=== PATIENT | male | born 1945 | race Caucasian/White ===

== ENCOUNTER → 2016-10-20 | Outpatient (REF) | payer MEDICARE ==
[~2016-10-20] MED LIST: /VERA12TA PO; DRIS50002 PO; DYAZCA OR; OMEP20CA3 PO; OMEP40CA2 PO; VITA1CAP2 PO; VITA200019 PO
[2016-10-20 11:48] LABS: INR 1.01; MEAN CORPUSCULAR HEMOGLOBIN 26.8 pg (27.0-33.0); MEAN CORPUSCULAR VOLUME 81.3 fl (80.0-96.0); WHITE BLOOD COUNT 8.9 K/mm3 (4.0-10.0)
[2016-10-20 12:17] LABS: ALBUMIN 3.6 GM/DL (3.2-5.2); ALBUMIN/GLOBULIN RATIO 1.03 (1.00-1.93); BILIRUBIN,TOTAL 0.9 MG/DL (0.2-1.0); CALCIUM LEVEL 8.3 MG/DL (8.8-10.2); CREATININE FOR GFR 1.55 MG/DL (0.70-1.30); POTASSIUM SERUM 3.4 MEQ/L (3.5-5.1); TOTAL PROTEIN 7.1 GM/DL (6.4-8.2)
== END ==
LOC: M SFHCPLAZ 08:57
PROVIDERS: ATTEND Family Medicine
DX: Z01.818 Encounter for other preprocedural examination (principal); R13.14 Dysphagia, pharyngoesophageal phase; E66.9 Obesity, unspecified; R41.3 Other amnesia; Z79.899 Other long term (current) drug therapy

== ENCOUNTER → 2017-01-27 | Outpatient (CLI) | payer MEDICARE ==
--- NOTE | 2017-01-28 09:29 | RADONC ---
RADIATION ONCOLOGY FOLLOWUP NOTE DATE: 01/27/2017 CHART NUMBER: [id number] DIAGNOSIS: Penis cancer STAGE: I, [id number]. ECOG performance status zero. FOLLOW UP NOTE: Mr. 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 The patient presents today reporting that he is doing quite well with no complaints at this time related to his radiation therapy or disease. He is having no urinary or bowel difficulties. No bone pain. He recently underwent a cholecystectomy. REVIEW OF SYSTEMS: The patient's review of systems is noncontributory. Denies nausea, vomiting, fevers, chills, night sweats, diplopia, headaches, anxiety or depression, anorexia, weight loss, visual disturbances, chest pain, urinary or bowel difficulties, bone pain, or neurological problems. PHYSICAL EXAMINATION: The patient is a well-developed, well-nourished male in no acute distress. HEENT exam is normocephalic, atraumatic. Extraocular movements are intact. There is no palpable cervical, supraclavicular, infraclavicular, axillary, or inguinal lymphadenopathy present. Lungs are clear to auscultation and percussion. Heart has a regular rate and rhythm. Abdomen is benign with no hepatosplenomegaly, masses, or tenderness. Rectal examination reveals a normal anal sphincter tone. Genital examination reveals some telangiectasia and edema of the penis as well as some fibrosis, but no evidence of nodularity, ulceration or recurrent disease. Skeletal examination reveals no tenderness to pressure or percussion of the bony skeleton. Extremities reveal no clubbing, cyanosis, or edema. Neurologic exam is grossly intact, as is the remainder of the physical examination. ASSESSMENT: The patient is clinically ABDIRASHID at this time and will be seen by us again in 1 year for further followup. He will also continue to be followed by his other physicians as well. cc: MD PRABHA Rowe
== END ==
LOC: M ONCR 13:11
PROVIDERS: ATTEND Radiology Radiation Oncology
DX: C60.9 Malignant neoplasm of penis, unspecified (principal)

== ENCOUNTER → 2017-08-11 | Outpatient (REF) | payer MEDICARE ==
[2017-08-11 15:34] LABS: BASO % 0.4 % (0.0-1.0); EOS # 0.3 10^3/uL (0.0-0.50); IMMATURE GRANULOCYTE % 0.4 % (0-0); LYMPH # 1.8 10^3/uL (1.5-4.5); LYMPH % 22.2 % (24.0-44.0); MEAN CORPUSCULAR HEMOGLOBIN 26.6 pg (27.0-33.0); MEAN CORPUSCULAR HGB CONC 32.1 g/dl (32.0-36.5); MEAN CORPUSCULAR VOLUME 82.9 fl (80.0-96.0); MONO # 0.7 10^3/uL (0.0-0.8); MONO % 8.5 % (0.0-5.0); NEUTROPHILS # 5.4 10^3/uL (1.8-7.7); NEUTROPHILS % 65.5 % (36.0-66.0); PLATELET COUNT, AUTOMATED 203 10^3/uL (150-450); RETIC HEMOGLOBIN EQUIVALENT 32.2 pg (24-36); RETICULOCYTE % 1.7 % (0.5-1.5); WHITE BLOOD COUNT 8.3 10^3/uL (4.0-10.0)
[2017-08-11 16:09] LABS: CALCIUM LEVEL 8.7 MG/DL (8.8-10.2); CREATININE FOR GFR 1.41 MG/DL (0.70-1.30); GLOMERULAR FILTRATION RATE 52.3 (>42); POTASSIUM SERUM 3.3 MEQ/L (3.5-5.1)
== END ==
LOC: M SFHCPLAZ 12:33
PROVIDERS: ATTEND Family Medicine
DX: I10 Essential (primary) hypertension (principal); R73.03 Prediabetes; E78.5 Hyperlipidemia, unspecified; D64.9 Anemia, unspecified; R60.0 Localized edema; Z23 Encounter for immunization

== ENCOUNTER → 2018-02-08 | Outpatient (REF) | payer MEDICARE ==
[2018-02-08 12:10] LABS: BASO % 0.3 % (0.0-1.0); EOS # 0.2 10^3/uL (0.0-0.50); EOS % 3.1 % (0.0-3.0); HEMATOCRIT 36.3 % (42.0-52.0); HEMOGLOBIN 11.4 g/dl (13.5-17.5); IMMATURE GRANULOCYTE % 0.6 % (0-3.0); LYMPH # 1.5 10^3/uL (1.5-4.5); LYMPH % 22.6 % (24.0-44.0); MEAN CORPUSCULAR HEMOGLOBIN 25.7 pg (27.0-33.0); MEAN CORPUSCULAR HGB CONC 31.4 g/dl (32.0-36.5); MEAN CORPUSCULAR VOLUME 81.9 fl (80.0-96.0); MONO # 0.7 10^3/uL (0.0-0.8); MONO % 10.4 % (0.0-5.0); NEUTROPHILS # 4.2 10^3/uL (1.8-7.7); PLATELET COUNT, AUTOMATED 170 10^3/uL (150-450); RED BLOOD COUNT 4.43 10^6/uL (4.30-6.10); RED CELL DISTRIBUTION WIDTH 16.7 % (11.5-14.5); RETICULOCYTE # 58.5 10^9/L (17-77); RETICULOCYTE % 1.3 % (0.5-1.5); WHITE BLOOD COUNT 6.7 10^3/uL (4.0-10.0)
[2018-02-08 13:01] LABS: FERRITIN 34 NG/ML (26-388); IRON (FE) 34 UG/DL (65-175); PERCENT SATURATION 11.5 % (19.7-50.0); TOTAL IRON BINDING CAPACITY 296 UG/DL (250-450)
[2018-02-08 18:46] LABS: ESTIMATED AVERAGE GLUCOSE 114 MG/DL (60-110); HEMOGLOBIN A1c 5.6 %
[2018-02-09 08:06] LABS: TRANSFERRIN 234 mg/dL (200-370)
== END ==
LOC: M SFHCPLAZ 10:27
DX: D64.9 Anemia, unspecified (principal); R73.03 Prediabetes
CPT/HCPCS: 83036

== ENCOUNTER → 2018-03-16 | Outpatient (CLI) | payer MEDICARE | LOC: M ONCR 13:09 | DX: C60.9 Malignant neoplasm of penis, unspecified (principal) | CPT/HCPCS: G0463 ==

== ENCOUNTER → 2018-05-31 | Outpatient (CLI) | payer MEDICARE ==
[~2018-05-31] MED LIST changes: -/VERA12TA PO; -DRIS50002 PO; -DYAZCA OR; +ISOVUE-370 76% 100ML VIAL (Q9967) As Ordered; -OMEP20CA3 PO; -OMEP40CA2 PO; -VITA1CAP2 PO; -VITA200019 PO
== END ==
LOC: M RAD 10:06
DX: I71.4 Abdominal aortic aneurysm, without rupture (principal); K57.30 Diverticulosis of large intestine without perforation or abscess without bleeding; Z95.828 Presence of other vascular implants and grafts
CPT/HCPCS: Q9967

== ENCOUNTER → 2018-10-24 | Outpatient (REF) | payer MEDICARE ==
[~2018-10-24] MED LIST changes: +/VERA12TA PO; +DRIS50003 PO; +DYAZCA OR; -ISOVUE-370 76% 100ML VIAL (Q9967) As Ordered; +OMEP20CA3 PO; +OMEP40CA2 PO; +VITA1CAP2 PO; +VITA200019 PO
[2018-10-24 13:37] LABS: URINE TOTAL PROTEIN 20.8 MG/DL (0-12)
[2018-10-24 14:05] LABS: PERCENT SATURATION 11.2 % (19.7-50.0); TOTAL PROTEIN 6.7 GM/DL (6.4-8.2)
[2018-10-24 14:36] LABS: HEMOGLOBIN A1c 5.6 %
== END ==
LOC: M SFHCPLAZ 11:12
PROVIDERS: ATTEND Family Medicine
DX: R35.1 Nocturia (principal); D50.9 Iron deficiency anemia, unspecified; R73.03 Prediabetes
CPT/HCPCS: 36415; 83036; 83550; 83880; 84165; 84166; 85046; G0103

== ENCOUNTER → 2019-01-23 | Outpatient (REF) | payer MEDICARE ==
[~2019-01-23] MED LIST changes: +VITA-183 PO; -VITA1CAP2 PO
[2019-01-23 13:17] LABS: BASO % 0.3 % (0.0-1.0); EOS # 0.2 10^3/uL (0.0-0.50); HEMATOCRIT 37.6 % (42.0-52.0); HEMOGLOBIN 12.1 g/dl (13.5-17.5); LYMPH # 1.6 10^3/uL (1.5-4.5); LYMPH % 20.6 % (24.0-44.0); MEAN CORPUSCULAR HEMOGLOBIN 27.6 pg (27.0-33.0); MEAN CORPUSCULAR HGB CONC 32.2 g/dl (32.0-36.5); MEAN CORPUSCULAR VOLUME 85.6 fl (80.0-96.0); MONO # 0.7 10^3/uL (0.0-0.8); MONO % 9.2 % (0.0-5.0); NEUTROPHILS # 5.3 10^3/uL (1.8-7.7); NEUTROPHILS % 67.5 % (36.0-66.0); PLATELET COUNT, AUTOMATED 190 10^3/uL (150-450); RED BLOOD COUNT 4.39 10^6/uL (4.30-6.10); WHITE BLOOD COUNT 7.8 10^3/uL (4.0-10.0)
[2019-01-23 13:20] LABS: APPEARANCE, URINE CLEAR (CLEAR); BACTERIA, URINE AUTO NEGATIVE (NEGATIVE); BILIRUBIN, URINE AUTO NEGATIVE (NEGATIVE); BLOOD, URINE BLOOD NEGATIVE (NEGATIVE); COLOR, URINE YELLOW (YELLOW); GLUCOSE, URINE (UA) AUTO NEGATIVE (NEGATIVE); KETONE, URINE AUTO NEGATIVE (NEGATIVE); LEUKOCYTE ESTERASE, URINE AUTO NEGATIVE (NEGATIVE); MUCUS, URINE SMALL (NEGATIVE); NITRITE, URINE AUTO NEGATIVE (NEGATIVE); PROTEIN, URINE AUTO NEGATIVE (NEGATIVE); RBC, URINE AUTO 1 /HPF (0-3); SPECIFIC GRAVITY URINE AUTO 1.023 (1.002-1.035); SQUAMOUS EPITHELIAL CELL UR AU 1 /HPF (0-6); WBC, URINE AUTO 2 /HPF (0-3)
== END ==
LOC: M SFHCPLAZ 10:23
PROVIDERS: ATTEND Family Medicine
DX: D50.9 Iron deficiency anemia, unspecified (principal)

== ENCOUNTER → 2019-08-28 | Outpatient (REF) | payer MEDICARE ==
[~2019-08-28] MED LIST changes: +OMEP-172 PO; -OMEP20CA3 PO
[2019-08-28 11:53] LABS: BASO % 0.3 % (0.0-1.0); EOS # 0.2 10^3/uL (0.0-0.5); EOS % 2.8 % (0.0-3.0); HEMATOCRIT 42.3 % (42.0-52.0); HEMOGLOBIN 12.8 g/dl (13.5-17.5); LYMPH # 1.4 10^3/uL (1.5-5.0); LYMPH % 20.9 % (24.0-44.0); MEAN CORPUSCULAR HEMOGLOBIN 26.4 pg (27.0-33.0); MEAN CORPUSCULAR HGB CONC 30.3 g/dl (32.0-36.5); MEAN CORPUSCULAR VOLUME 87.4 fl (80.0-96.0); MONO # 0.6 10^3/uL (0.0-0.8); MONO % 8.7 % (0.0-5.0); NEUTROPHILS # 4.4 10^3/uL (1.5-8.5); PLATELET COUNT, AUTOMATED 179 10^3/uL (150-450); RED BLOOD COUNT 4.84 10^6/uL (4.30-6.10); WHITE BLOOD COUNT 6.5 10^3/uL (4.0-10.0)
[2019-08-28 12:03] LABS: ALBUMIN 3.4 GM/DL (3.2-5.2); CALCIUM LEVEL 8.6 MG/DL (8.8-10.2); CHOLESTEROL RISK RATIO 3.175 (<5); CREATININE FOR GFR 1.32 MG/DL (0.70-1.30); GLOMERULAR FILTRATION RATE 56.1 (>42); PERCENT SATURATION 12.7 % (19.7-50.0); POTASSIUM SERUM 3.9 MEQ/L (3.5-5.1); TOTAL PROTEIN 7.1 GM/DL (6.4-8.2)
[2019-08-28 12:17] LABS: HEMOGLOBIN A1c 5.5 %
== END ==
LOC: M SFHCPLAZ 09:45
PROVIDERS: ATTEND Nurse Practitioner Family
DX: R76.8 Other specified abnormal immunological findings in serum (principal); I10 Essential (primary) hypertension; E78.5 Hyperlipidemia, unspecified; D50.9 Iron deficiency anemia, unspecified; R73.03 Prediabetes

== ENCOUNTER → 2020-03-29 | Outpatient (REF) | payer MEDICARE ==
[~2020-03-29] MED LIST changes: -OMEP-172 PO; +OMEP1CAP73 PO
[2020-04-27 03:19] LABS: BASO % 0.5 % (0.0-1.0); EOS # 0.2 10^3/uL (0.0-0.5); EOS % 2.5 % (0.0-3.0); HEMATOCRIT 41.3 % (42.0-52.0); HEMOGLOBIN 12.5 g/dl (13.5-17.5); LYMPH # 1.5 10^3/uL (1.5-5.0); LYMPH % 17.4 % (24.0-44.0); MEAN CORPUSCULAR HEMOGLOBIN 25.9 pg (27.0-33.0); MEAN CORPUSCULAR HGB CONC 30.3 g/dl (32.0-36.5); MEAN CORPUSCULAR VOLUME 85.5 fl (80.0-96.0); MONO # 0.7 10^3/uL (0.0-0.8); MONO % 8.4 % (0.0-5.0); NEUTROPHILS # 6.3 10^3/uL (1.5-8.5); NEUTROPHILS % 70.7 % (36.0-66.0); PLATELET COUNT, AUTOMATED 194 10^3/uL (150-450); RED BLOOD COUNT 4.83 10^6/uL (4.30-6.10); WHITE BLOOD COUNT 8.8 10^3/uL (4.0-10.0)
[2020-05-14 12:35] LABS: ALBUMIN 3.3 GM/DL (3.2-5.2); BILIRUBIN,TOTAL 1.1 MG/DL (0.2-1.0); CHOLESTEROL RISK RATIO 2.875 (<5); CREATININE FOR GFR 1.37 MG/DL (0.70-1.30); FREE T4 0.78 NG/DL (0.76-1.46); GLOMERULAR FILTRATION RATE 53.6 (>42); POTASSIUM SERUM 3.5 MEQ/L (3.5-5.1); PROSTATIC SPECIFIC AG MONITOR 0.75 NG/ML (< 4.00); THYROID STIMULATING HORMONE 1.73 uIU/ML (0.358-3.740); TOTAL PROTEIN 6.9 GM/DL (6.4-8.2)
== END ==
LOC: M SFHCPLAZ 09:26
PROVIDERS: ATTEND Physician Assistant Medical
DX: Z12.5 Encounter for screening for malignant neoplasm of prostate (principal); E78.5 Hyperlipidemia, unspecified; D50.9 Iron deficiency anemia, unspecified; I10 Essential (primary) hypertension; R97.20 Elevated prostate specific antigen [PSA]

== ENCOUNTER → 2020-10-23 | Outpatient (CLI) | payer MEDICARE ==
[2020-10-23 12:55] LABS: BASO % 0.5 % (0.0-1.0); EOS # 0.2 10^3/uL (0.0-0.5); EOS % 2.9 % (0.0-3.0); HEMATOCRIT 39.2 % (42.0-52.0); HEMOGLOBIN 11.8 g/dl (13.5-17.5); LYMPH # 1.6 10^3/uL (1.5-5.0); LYMPH % 24.2 % (24.0-44.0); MEAN CORPUSCULAR HEMOGLOBIN 25.9 pg (27.0-33.0); MEAN CORPUSCULAR HGB CONC 30.1 g/dl (32.0-36.5); MEAN CORPUSCULAR VOLUME 86.2 fl (80.0-96.0); MONO # 0.6 10^3/uL (0.0-0.8); MONO % 8.6 % (2.0-8.0); NEUTROPHILS # 4.1 10^3/uL (1.5-8.5); NEUTROPHILS % 63.2 % (36.0-66.0); PLATELET COUNT, AUTOMATED 185 10^3/uL (150-450); RED BLOOD COUNT 4.55 10^6/uL (4.30-6.10); WHITE BLOOD COUNT 6.5 10^3/uL (4.0-10.0)
[2020-10-23 13:32] LABS: ALBUMIN 3.4 GM/DL (3.2-5.2); ALT/SGPT 13 U/L (12-78); BILIRUBIN,TOTAL 0.8 MG/DL (0.2-1.0); BLOOD UREA NITROGEN 18 MG/DL (7-18); CALCIUM LEVEL 8.4 MG/DL (8.8-10.2); CARBON DIOXIDE LEVEL 30 MEQ/L (21-32); CHLORIDE LEVEL 113 MEQ/L (98-107); CHOLESTEROL LEVEL 120 MG/DL (<200); CHOLESTEROL RISK RATIO 3.076 (<5); CREATININE FOR GFR 1.17 MG/DL (0.70-1.30); FERRITIN 25 NG/ML (26-388); FREE T4 0.74 NG/DL (0.76-1.46); GLOMERULAR FILTRATION RATE > 60.0 (>42); GLUCOSE, FASTING 89 MG/DL (70-100); HDL CHOLESTEROL 39 MG/DL (>40); LDL CHOLESTEROL 66 MG/DL (<100); NON-HDL-C 81 MG/DL; POTASSIUM SERUM 3.7 MEQ/L (3.5-5.1); SODIUM LEVEL 147 MEQ/L (136-145); TOTAL PROTEIN 6.6 GM/DL (6.4-8.2); TRIGLYCERIDES LEVEL 73 MG/DL (<150)
[2020-10-23 13:52] LABS: HEMOGLOBIN A1c 5.4 %
== END ==
LOC: M WUC 10:40
PROVIDERS: ATTEND Nurse Practitioner Family
DX: D50.9 Iron deficiency anemia, unspecified (principal); R73.03 Prediabetes; I10 Essential (primary) hypertension; E55.9 Vitamin D deficiency, unspecified; E78.5 Hyperlipidemia, unspecified; Z79.899 Other long term (current) drug therapy

== ENCOUNTER → 2021-06-11 | Outpatient (CLI) | payer MEDICARE ==
[2021-06-11 12:34] LABS: BASO % 0.5 % (0.0-1.0); EOS # 0.2 10^3/uL (0.0-0.5); EOS % 3.5 % (0.0-3.0); HEMATOCRIT 35.9 % (42.0-52.0); HEMOGLOBIN 10.7 g/dl (13.5-17.5); LYMPH # 1.5 10^3/uL (1.5-5.0); LYMPH % 26.5 % (24.0-44.0); MEAN CORPUSCULAR HEMOGLOBIN 24.5 pg (27.0-33.0); MEAN CORPUSCULAR HGB CONC 29.8 g/dl (32.0-36.5); MEAN CORPUSCULAR VOLUME 82.2 fl (80.0-96.0); MONO # 0.5 10^3/uL (0.0-0.8); MONO % 9.5 % (2.0-8.0); NEUTROPHILS # 3.4 10^3/uL (1.5-8.5); NEUTROPHILS % 59.5 % (36.0-66.0); PLATELET COUNT, AUTOMATED 202 10^3/uL (150-450); RED BLOOD COUNT 4.37 10^6/uL (4.30-6.10); WHITE BLOOD COUNT 5.7 10^3/uL (4.0-10.0)
[2021-06-11 13:02] LABS: HEMOGLOBIN A1c 5.2 %
[2021-06-11 13:09] LABS: ALBUMIN 2.9 GM/DL (3.2-5.2); BILIRUBIN,TOTAL 0.8 MG/DL (0.2-1.0); CALCIUM LEVEL 8.1 MG/DL (8.8-10.2); CHOLESTEROL RISK RATIO 4.2 (<5); CREATININE FOR GFR 1.37 MG/DL (0.70-1.30); FREE T4 0.75 NG/DL (0.76-1.46); GLOMERULAR FILTRATION RATE 53.5 (>42); POTASSIUM SERUM 3.7 MEQ/L (3.5-5.1); THYROID STIMULATING HORMONE 0.864 uIU/ML (0.358-3.740); TOTAL PROTEIN 6.5 GM/DL (6.4-8.2)
[2021-06-11 13:10] LABS: TOTAL 25(OH) VITAMIN D 23.3 NG/ML (30.0-100.0)
== END ==
LOC: M WUC 10:35
PROVIDERS: ATTEND Nurse Practitioner Family
DX: D50.9 Iron deficiency anemia, unspecified (principal); R73.03 Prediabetes; I10 Essential (primary) hypertension; E78.5 Hyperlipidemia, unspecified; Z12.5 Encounter for screening for malignant neoplasm of prostate
CPT/HCPCS: 36415; 80053; 80061; 82306; 82728; 83036; 84439; 84443; 85025; G0103

== ENCOUNTER 2021-07-17 14:54 | Inpatient (IN) | payer MEDICARE ==
[2021-07-17] MEDS ORDERED: ISOVUE-370 76% 100ML VIAL As Ordered ONE (15:10)
[2021-07-17 15:31] LABS: BASO % 0.6 % (0.0-1.0); EOS # 0.2 10^3/uL (0.0-0.5); EOS % 2.7 % (0.0-3.0); HEMATOCRIT 35.1 % (42.0-52.0); HEMOGLOBIN 10.7 g/dl (13.5-17.5); LYMPH # 1.6 10^3/uL (1.5-5.0); MEAN CORPUSCULAR HEMOGLOBIN 24.4 pg (27.0-33.0); MEAN CORPUSCULAR HGB CONC 30.5 g/dl (32.0-36.5); MEAN CORPUSCULAR VOLUME 80.1 fl (80.0-96.0); MONO # 0.5 10^3/uL (0.0-0.8); MONO % 7.3 % (2.0-8.0); NEUTROPHILS # 4.3 10^3/uL (1.5-8.5); NEUTROPHILS % 64.7 % (36.0-66.0); PLATELET COUNT, AUTOMATED 216 10^3/uL (150-450); RED BLOOD COUNT 4.38 10^6/uL (4.30-6.10); WHITE BLOOD COUNT 6.7 10^3/uL (4.0-10.0)
[2021-07-17 15:46] LABS: OSMOLALITY SERUM 294 MOSM/KG (280-301)
[2021-07-17 15:59] LABS: VENOUS BASE EXCESS -4.9 (-2.0-2.0); VENOUS O2 SATURATION 75.7 % (60.0-80.0); VENOUS PARTIAL PRESSURE CO2 31.3 mmHg (38.0-50.0); VENOUS PARTIAL PRESSURE O2 40.8 mmHg (30.0-50.0); VENOUS PH 7.401 UNITS (7.330-7.430)
[2021-07-17 16:09] LABS: ACETAMINOPHEN LEVEL < 2.0 UG/ML (10.0-30.0); ALBUMIN 2.9 GM/DL (3.2-5.2); ALT/SGPT 12 U/L (12-78); BILIRUBIN,DIRECT 0.2 MG/DL (0.0-0.2); BILIRUBIN,TOTAL 0.9 MG/DL (0.2-1.0); BLOOD UREA NITROGEN 18 MG/DL (7-18); CALCIUM LEVEL 8.3 MG/DL (8.8-10.2); CARBON DIOXIDE LEVEL 25 MEQ/L (21-32); CHLORIDE LEVEL 113 MEQ/L (98-107); CREATININE FOR GFR 1.34 MG/DL (0.70-1.30); ETHYL ALCOHOL (ETHANOL) < 0.003 % (0.000-0.010); GLOMERULAR FILTRATION RATE 54.9 (>42); GLUCOSE, FASTING 97 MG/DL (70-100); POTASSIUM SERUM 4.1 MEQ/L (3.5-5.1); SALICYLATE LEVEL < 1.7 MG/DL (5.0-30.0); SODIUM LEVEL 146 MEQ/L (136-145); TOTAL PROTEIN 6.6 GM/DL (6.4-8.2)
[2021-07-17] MEDS ORDERED: ROSU20TA5 PO (16:47)
[2021-07-17] MEDS ORDERED: VERA240C3 PO (16:47)
[2021-07-17] MEDS ORDERED: TRIA37.53 PO (16:47)
[2021-07-17 16:49] LABS: AMPHETAMINES LEVEL URINE NEGATIVE (NEGATIVE); BARBITURATES URINE NEGATIVE (NEGATIVE); BENZODIAZEPINES URINE NEGATIVE (NEGATIVE); CANNABINOIDS URINE NEGATIVE (NEGATIVE); COCAINE METABOLITE URINE NEGATIVE (NEGATIVE); METHADONE URINE NEGATIVE (NEGATIVE); OPIATES URINE NEGATIVE (NEGATIVE); PHENCYCLIDINE URINE NEGATIVE (NEGATIVE)
[2021-07-17] MEDS ORDERED: HOME MED LIST COMPLETE! XX SCH (16:50)
[2021-07-17 17:08] LABS: RSV AMPLIFICATION NEGATIVE (NEGATIVE)
[2021-07-17] MEDS ORDERED: ACETAMINOPHEN TAB 650MG DOSE (2X325MG) PO PRN (17:20)
[2021-07-17] MEDS: LORazepam 2 MG/ML VIAL IV SCH ×2 (17:54→18:25)
[2021-07-17] MEDS ORDERED: ASPIRIN 325 MG TAB PO ONE (18:10)
[2021-07-17] MEDS ORDERED: LORazepam 2 MG/ML VIAL IV PRN (19:00)
[2021-07-17] MEDS ORDERED: LORazepam 2 MG/ML VIAL IV ONE (19:35)
[2021-07-17] MEDS ORDERED: LABETALOL 100MG/20ML VIAL IV SCH (20:00)
[2021-07-17 20:24] LABS: C REACTIVE PROTEIN QUANTITATIV 0.76 MG/DL (0.00-0.30)
[2021-07-17] MEDS ORDERED: ASPIRIN 300 MG SUPP PR STA (20:43)
[2021-07-17] MEDS: D5W/0.9% SODIUM CHLORIDE 1,000 ML IV SCH (20:44)
[2021-07-17] MEDS ORDERED: LABETALOL 100MG/20ML VIAL IV PRN (20:45)
[2021-07-17 20:53] LABS: ERYTHROCYTE SEDIMENTATION RATE 19 mm/hr (0-20)
[2021-07-18] MEDS ORDERED: ATORVASTATIN 20 MG TAB PO SCH (09:00)
[2021-07-18] MEDS ORDERED: DYAZIDE 37.5/25 CAP (TRIAM/HCTZ) PO SCH (09:00)
[2021-07-18 09:06] LABS: HEMATOCRIT 33.4 % (42.0-52.0); HEMOGLOBIN 10.2 g/dl (13.5-17.5); MEAN CORPUSCULAR HEMOGLOBIN 24.2 pg (27.0-33.0); MEAN CORPUSCULAR HGB CONC 30.5 g/dl (32.0-36.5); MEAN CORPUSCULAR VOLUME 79.3 fl (80.0-96.0); PLATELET COUNT, AUTOMATED 172 10^3/uL (150-450); RED BLOOD COUNT 4.21 10^6/uL (4.30-6.10); WHITE BLOOD COUNT 6.6 10^3/uL (4.0-10.0)
[2021-07-18 09:32] LABS: BLOOD UREA NITROGEN 13 MG/DL (7-18); CALCIUM LEVEL 8.1 MG/DL (8.8-10.2); CARBON DIOXIDE LEVEL 25 MEQ/L (21-32); CHLORIDE LEVEL 116 MEQ/L (98-107); CREATININE FOR GFR 1.12 MG/DL (0.70-1.30); GLOMERULAR FILTRATION RATE > 60.0 (>42); GLUCOSE, FASTING 88 MG/DL (70-100); POTASSIUM SERUM 3.3 MEQ/L (3.5-5.1); SODIUM LEVEL 149 MEQ/L (136-145)
[2021-07-18 12:15] VITALS: BP 180/80
[2021-07-18] MEDS: ASPIRIN 325 MG TAB PO SCH (12:17)
[2021-07-18] MEDS: D5W/0.9% SODIUM CHLORIDE 1,000 ML IV SCH (12:18)
[2021-07-18 13:16] LABS: HEMOGLOBIN A1c 5.4 %
[2021-07-18 13:20] VITALS: BP 170/76
[2021-07-18 13:42] VITALS: BP 141/70
[2021-07-18 15:58] VITALS: BP 157/75
[2021-07-18] MEDS: ROSUVASTATIN 10 MG TAB (CRESTOR) PO SCH (16:10)
[2021-07-18] MEDS: VERAPAMIL 120MG SR TAB PO SCH (16:10)
[2021-07-18] MEDS ORDERED: POTASSIUM CHLORIDE 10MEQ SR TABLET PO ONE (19:00)
[2021-07-18 20:00] VITALS: BP 169/77
[2021-07-19] VITALS: BP 139/70
[2021-07-19] MEDS ORDERED: RAMELTEON 8 MG TAB (ROZEREM) PO PRN (02:30)
[2021-07-19 04:00] VITALS: BP 167/73
[2021-07-19 06:03] LABS: HEMATOCRIT 33.5 % (42.0-52.0); HEMOGLOBIN 10.3 g/dl (13.5-17.5); MEAN CORPUSCULAR HEMOGLOBIN 24.4 pg (27.0-33.0); MEAN CORPUSCULAR HGB CONC 30.7 g/dl (32.0-36.5); MEAN CORPUSCULAR VOLUME 79.4 fl (80.0-96.0); PLATELET COUNT, AUTOMATED 189 10^3/uL (150-450); RED BLOOD COUNT 4.22 10^6/uL (4.30-6.10); WHITE BLOOD COUNT 7.5 10^3/uL (4.0-10.0)
[2021-07-19 06:21] LABS: BLOOD UREA NITROGEN 14 MG/DL (7-18); CREATININE FOR GFR 1.07 MG/DL (0.70-1.30); GLUCOSE, FASTING 79 MG/DL (70-100)
[2021-07-19 06:22] LABS: CARBON DIOXIDE LEVEL 23 MEQ/L (21-32); CHLORIDE LEVEL 116 MEQ/L (98-107); GLOMERULAR FILTRATION RATE > 60.0 (>42); MAGNESIUM LEVEL 1.8 MG/DL (1.8-2.4); POTASSIUM SERUM 3.7 MEQ/L (3.5-5.1); SODIUM LEVEL 147 MEQ/L (136-145)
[2021-07-19 08:00] VITALS: BP 160/74
[2021-07-19] MEDS ORDERED: DIVALPROEX 250 MG TAB PO SCH (09:00)
[2021-07-19] MEDS ORDERED: NS 0.45% 1,000 ML IV SCH (12:00)
[2021-07-19 16:35] VITALS: BP 129/63
[2021-07-19 17:07] VITALS: BP 143/69
[2021-07-19] MEDS: ROSUVASTATIN 10 MG TAB (CRESTOR) PO SCH (17:14)
[2021-07-19] MEDS: ASPIRIN 325 MG TAB PO SCH (17:15)
[2021-07-19] MEDS: VERAPAMIL 120MG SR TAB PO SCH (17:15)
[2021-07-19 20:35] VITALS: BP 133/75
[2021-07-19] MEDS: D5W/0.9% SODIUM CHLORIDE 1,000 ML IV SCH (21:38)
[2021-07-19] MEDS: DIVALPROEX SPRINKLE 125 MG CAP PO SCH (21:43)
[2021-07-19] MEDS: DYAZIDE 37.5/25 CAP (TRIAM/HCTZ) PO SCH (21:48)
[2021-07-20 06:00] VITALS: BP 113/57
[2021-07-20 06:43] LABS: HEMATOCRIT 34.2 % (42.0-52.0); HEMOGLOBIN 10.2 g/dl (13.5-17.5); MEAN CORPUSCULAR HEMOGLOBIN 24.1 pg (27.0-33.0); MEAN CORPUSCULAR HGB CONC 29.8 g/dl (32.0-36.5); MEAN CORPUSCULAR VOLUME 80.7 fl (80.0-96.0); PLATELET COUNT, AUTOMATED 199 10^3/uL (150-450); RED BLOOD COUNT 4.24 10^6/uL (4.30-6.10); WHITE BLOOD COUNT 6.4 10^3/uL (4.0-10.0)
[2021-07-20 07:14] LABS: BLOOD UREA NITROGEN 18 MG/DL (7-18); CALCIUM LEVEL 8.3 MG/DL (8.8-10.2); CARBON DIOXIDE LEVEL 24 MEQ/L (21-32); CHLORIDE LEVEL 116 MEQ/L (98-107); CREATININE FOR GFR 1.22 MG/DL (0.70-1.30); GLOMERULAR FILTRATION RATE > 60.0 (>42); GLUCOSE, FASTING 94 MG/DL (70-100); POTASSIUM SERUM 4.1 MEQ/L (3.5-5.1); SODIUM LEVEL 147 MEQ/L (136-145)
[2021-07-20] MEDS: ASPIRIN 325 MG TAB PO SCH (09:32)
[2021-07-20] MEDS: ROSUVASTATIN 10 MG TAB (CRESTOR) PO SCH (09:32)
[2021-07-20] MEDS: VERAPAMIL 120MG SR TAB PO SCH (09:33)
[2021-07-20] MEDS: DYAZIDE 37.5/25 CAP (TRIAM/HCTZ) PO SCH (09:35)
[2021-07-20] MEDS: DIVALPROEX SPRINKLE 125 MG CAP PO SCH ×2 (09:35→20:51)
[2021-07-20] MEDS: D5W/0.9% SODIUM CHLORIDE 1,000 ML IV SCH (10:29)
[2021-07-20 14:00] VITALS: BP 119/62
[2021-07-20 22:00] VITALS: BP 146/74
[2021-07-21 06:00] VITALS: BP 142/74
[2021-07-21] MEDS: D5W/0.9% SODIUM CHLORIDE 1,000 ML IV SCH (06:06)
[2021-07-21 06:12] LABS: HEMOGLOBIN 10.3 g/dl (13.5-17.5); MEAN CORPUSCULAR HEMOGLOBIN 24.3 pg (27.0-33.0); MEAN CORPUSCULAR HGB CONC 30.3 g/dl (32.0-36.5); MEAN CORPUSCULAR VOLUME 80.2 fl (80.0-96.0); PLATELET COUNT, AUTOMATED 199 10^3/uL (150-450); RED BLOOD COUNT 4.24 10^6/uL (4.30-6.10)
[2021-07-21 06:38] LABS: CALCIUM LEVEL 8.2 MG/DL (8.8-10.2); CREATININE FOR GFR 1.27 MG/DL (0.70-1.30); GLOMERULAR FILTRATION RATE 58.4 (>42); POTASSIUM SERUM 3.5 MEQ/L (3.5-5.1)
[2021-07-21] MEDS: DIVALPROEX SPRINKLE 125 MG CAP PO SCH (08:46)
[2021-07-21] MEDS: ASPIRIN 325 MG TAB PO SCH (08:46)
[2021-07-21] MEDS: ROSUVASTATIN 10 MG TAB (CRESTOR) PO SCH (08:47)
[2021-07-21] MEDS: VERAPAMIL 120MG SR TAB PO SCH (08:47)
[2021-07-21] MEDS ORDERED: D5W 1,000 ML IV SCH (08:49)
[2021-07-21 09:26] VITALS: BP 158/90
[2021-07-21] MEDS ORDERED: ASPI-1 PO (12:30)
[2021-07-21] MEDS ORDERED: DIVA125C6 PO (12:30)
[2021-07-21] MEDS ORDERED: AMLO1TAB25 PO (12:30)
[2021-07-21] MEDS ORDERED: ROSU20TA5 PO (12:30)
[2021-07-23 08:09] LABS: HSV-1 DNA Negative (Negative); HSV-2 DNA Negative (Negative)
[2021-07-23 15:07] LABS: ANTI THROMBIN 3 FUNCT ACTIVITY 85 % (75-135); PROTEIN C FUNCTIONAL ACTIVITY 74 % (73-180); PROTEIN S FUNCTIONAL ACTIVITY 92 % (63-140)
[2021-07-24 10:53] LABS: DRVV SCREEN 58.9 SEC
[2021-07-24 10:55] LABS: PTT LUPUS TYPE ANTICOAG SCREEN 1.6 (0-1.2)
[2021-07-24 11:03] LABS: DRVV CONFIRM 49.5 SEC; LUPUS CONFIRM RATIO 1.3; NORMALIZED RATIO 1.23 (0.00-1.20)
[2021-07-26 15:07] LABS: HEXAGONAL PHASE PHOSPHOLIPID 3 sec (0-11)
[2021-08-05 09:14] LABS: ANTINUCLEAR ANTIBODIES DIRECT Negative (Negative); Lyme Disease IgG/IgM Antibodie <0.91 ISR (0.00-0.90); Lyme Disease IgM Ab Quantitati <0.80 index (0.00-0.79); RABIES NEUT. ABS TITRAT. <0.1 IU/mL (.)
== END 2021-07-21 13:25 | disposition home or self-care (01) | DRG 65 ==
LOC: EDBD 14:54 → M ED 14:54 → M ED INP 17:20 → ENRESERV 07-18 07:41 → M PCU 07-18 09:30 → M MSPAV 07-19 20:21
PROVIDERS: ADMIT Internal Medicine; ATTEND Internal Medicine
DX: I63.81 Other cerebral infarction due to occlusion or stenosis of small artery (principal); G40.209 Localization-related (focal) (partial) symptomatic epilepsy and epileptic syndromes with complex partial seizures, not intractable, without status epilepticus; E87.0 Hyperosmolality and hypernatremia; N18.30 Chronic kidney disease, stage 3 unspecified; E78.5 Hyperlipidemia, unspecified; D50.9 Iron deficiency anemia, unspecified; E55.9 Vitamin D deficiency, unspecified; I12.9 Hypertensive chronic kidney disease with stage 1 through stage 4 chronic kidney disease, or unspecified chronic kidney disease; G31.84 Mild cognitive impairment of uncertain or unknown etiology; R13.14 Dysphagia, pharyngoesophageal phase; R41.0 Disorientation, unspecified; I65.23 Occlusion and stenosis of bilateral carotid arteries; Z85.49 Personal history of malignant neoplasm of other male genital organs; Z98.41 Cataract extraction status, right eye; Z98.42 Cataract extraction status, left eye; Z20.822 Contact with and (suspected) exposure to COVID-19; Z79.899 Other long term (current) drug therapy

== ENCOUNTER → 2021-10-28 | Outpatient (CLI) | payer MEDICARE ==
[~2021-10-28] MED LIST changes: +AMLO1TAB25 PO; +ASPI-1 PO; +DIVA125C6 PO; +ROSU20TA5 PO; +TRIA37.53 PO; +VERA240C3 PO
[2021-10-28 15:50] LABS: BASO % 0.7 % (0.0-1.0); EOS # 0.2 10^3/uL (0.0-0.5); EOS % 3.5 % (0.0-3.0); HEMOGLOBIN 9.9 g/dl (13.5-17.5); LYMPH # 1.6 10^3/uL (1.5-5.0); LYMPH % 28.8 % (24.0-44.0); MEAN CORPUSCULAR VOLUME 80.1 fl (80.0-96.0); MONO # 0.7 10^3/uL (0.0-0.8); MONO % 12.8 % (2.0-8.0); NEUTROPHILS % 53.8 % (36.0-66.0); PLATELET COUNT, AUTOMATED 199 10^3/uL (150-450); RED BLOOD COUNT 4.12 10^6/uL (4.30-6.10); WHITE BLOOD COUNT 5.5 10^3/uL (4.0-10.0)
[2021-10-28 16:15] LABS: ALBUMIN 2.9 GM/DL (3.2-5.2); BILIRUBIN,TOTAL 0.8 MG/DL (0.2-1.0); CALCIUM LEVEL 8.1 MG/DL (8.8-10.2); CREATININE FOR GFR 1.38 MG/DL (0.70-1.30); GLOMERULAR FILTRATION RATE 53.1 (>42); POTASSIUM SERUM 3.9 MEQ/L (3.5-5.1); TOTAL PROTEIN 6.1 GM/DL (6.4-8.2); VALPROIC ACID (DEPAKOTE) 9.8 UG/ML (50.0-100.0)
== END ==
LOC: M WUC 11:01
PROVIDERS: ATTEND Psychiatry & Neurology Neurology
DX: R56.9 Unspecified convulsions (principal)

== ENCOUNTER → 2021-12-02 | Outpatient (CLI) | payer MEDICARE ==
[2021-12-02 12:33] LABS: BASO % 0.6 % (0.0-1.0); EOS # 0.2 10^3/uL (0.0-0.5); EOS % 3.2 % (0.0-3.0); HEMATOCRIT 33.8 % (42.0-52.0); LYMPH # 1.8 10^3/uL (1.5-5.0); LYMPH % 24.9 % (24.0-44.0); MEAN CORPUSCULAR HEMOGLOBIN 23.9 pg (27.0-33.0); MEAN CORPUSCULAR HGB CONC 29.6 g/dl (32.0-36.5); MEAN CORPUSCULAR VOLUME 80.7 fl (80.0-96.0); MONO # 0.6 10^3/uL (0.0-0.8); MONO % 8.5 % (2.0-8.0); NEUTROPHILS # 4.4 10^3/uL (1.5-8.5); NEUTROPHILS % 62.1 % (36.0-66.0); PLATELET COUNT, AUTOMATED 219 10^3/uL (150-450); RED BLOOD COUNT 4.19 10^6/uL (4.30-6.10); WHITE BLOOD COUNT 7.1 10^3/uL (4.0-10.0)
[2021-12-02 13:01] LABS: BILIRUBIN,TOTAL 0.7 MG/DL (0.2-1.0); CALCIUM LEVEL 8.2 MG/DL (8.8-10.2); CHOLESTEROL RISK RATIO 2.5 (<5); CREATININE FOR GFR 1.32 MG/DL (0.70-1.30); GLOMERULAR FILTRATION RATE 55.8 (>42); TOTAL PROTEIN 6.4 GM/DL (6.4-8.2)
[2021-12-02 13:02] LABS: PTH INTACT 48.3 PG/ML (18.5-88.0); TOTAL 25(OH) VITAMIN D 21.4 NG/ML (30.0-100.0)
[2021-12-02 16:59] LABS: HEMOGLOBIN A1c 5.2 %
== END ==
LOC: M WUC 10:09
PROVIDERS: ATTEND Nurse Practitioner Family
DX: I10 Essential (primary) hypertension (principal); E78.5 Hyperlipidemia, unspecified; E55.9 Vitamin D deficiency, unspecified; Z13.1 Encounter for screening for diabetes mellitus